=== PATIENT | male | born 1985 | race Caucasian/White ===

== ENCOUNTER 2016-08-26 12:25 | Emergency (ER) | payer OTHER ==
[~2016-08-26] VITALS: Ht 175.3 cm; Wt 89.5 kg
[~2016-08-26 12:25] MED LIST: BACITRAYCIN PLU28 G1 TP; BACTRIM,SEPT1 TABLET PO; CLINDAMYCIN HC300 MG PO; CLONAZEPAM0.5 MG PO; DILAUDID2 MG PO; FLUOXETINE HCL40 MG PO; NEURONTIN300 MG PO; NORCO 5/3251 TABLET PO; PERCOCET 5/31 TABLET PO; PROZAC40 MG PO; RIFAMPIN300 MG PO; SILVADENE20 GM TP
[2016-08-26 16:06] VITALS: BP 160/86
== END 2016-08-26 16:13 | disposition designated cancer center or children's hospital, planned readmission (85) ==
LOC: EME 12:25 → TRA 12:25
DX: T22.312A Burn of third degree of left forearm, initial encounter (principal); X06.2XXA Exposure to ignition of other clothing and apparel, initial encounter; F17.200 Nicotine dependence, unspecified, uncomplicated; Z91.5 Personal history of self-harm; Z71.6 Tobacco abuse counseling
CPT/HCPCS: 99281; 99285; J0690; J1885; J2270; J2405; J7030; J7050

== ENCOUNTER 2017-06-21 13:23 | Emergency (ER) | payer OTHER ==
[~2017-06-21] VITALS: Ht 177.8 cm; Wt 105.9 kg
[2017-06-21] MEDS ORDERED: CLONAZEPAM2 MG PO (14:45)
[2017-06-21 14:53] VITALS: BP 131/82
== END 2017-06-21 14:54 | disposition home or self-care (01) ==
LOC: EME 13:23
DX: Z76.0 Encounter for issue of repeat prescription (principal); F41.9 Anxiety disorder, unspecified; F17.200 Nicotine dependence, unspecified, uncomplicated
CPT/HCPCS: 99281; 99283

== ENCOUNTER 2017-07-28 01:11 | Emergency (ER) | payer OTHER ==
[~2017-07-28] VITALS: Ht 172.7 cm; Wt 105.7 kg
[~2017-07-28 01:11] MED LIST changes: +CLONAZEPAM2 MG PO
[2017-07-28 02:33] VITALS: BP 147/90
== END 2017-07-28 02:39 | disposition left against medical advice (07) ==
LOC: EME 01:11
DX: T25.322A Burn of third degree of left foot, initial encounter (principal); T25.222A Burn of second degree of left foot, initial encounter; X10.2XXA Contact with fats and cooking oils, initial encounter; Y93.G3 Activity, cooking and baking; Z91.5 Personal history of self-harm; Z53.20 Procedure and treatment not carried out because of patient's decision for unspecified reasons; F17.200 Nicotine dependence, unspecified, uncomplicated
CPT/HCPCS: 99281; 99284

== ENCOUNTER 2017-08-18 02:19 | Emergency (ER) | payer OTHER ==
[~2017-08-18] VITALS: Ht 177.8 cm; Wt 102.3 kg
[2017-08-18 02:20] VITALS: BP 144/96
== END 2017-08-18 04:28 | disposition left against medical advice (07) ==
LOC: EME 02:19
DX: T25.022D Burn of unspecified degree of left foot, subsequent encounter (principal); X10.2XXD Contact with fats and cooking oils, subsequent encounter; Z53.21 Procedure and treatment not carried out due to patient leaving prior to being seen by health care provider
CPT/HCPCS: 99281

== ENCOUNTER 2018-01-31 03:40 | Emergency (ER) | payer OTHER ==
[~2018-01-31] VITALS: Ht 177.8 cm; Wt 98.8 kg
[2018-01-31] MEDS ORDERED: NORCO 5/3251 TABLET PO (04:13)
[2018-01-31] MEDS ORDERED: FLEXERIL10 MG PO ×2 (04:13→15:02)
[2018-01-31 04:21] VITALS: BP 152/87
[2018-01-31] MEDS ORDERED: NAPROSYN500 MG PO (15:02)
== END 2018-01-31 04:22 | disposition home or self-care (01) ==
LOC: EXP 03:40 → EME 03:40 → EXP 04:22
DX: S20.211A Contusion of right front wall of thorax, initial encounter (principal); W01.0XXA Fall on same level from slipping, tripping and stumbling without subsequent striking against object, initial encounter; Y93.K1 Activity, walking an animal; Y92.480 Sidewalk as the place of occurrence of the external cause; Z87.891 Personal history of nicotine dependence; Z88.5 Allergy status to narcotic agent; Z88.8 Allergy status to other drugs, medicaments and biological substances
CPT/HCPCS: 71101; 99281; 99283

== ENCOUNTER 2018-01-31 13:28 | Emergency (ER) | payer OTHER ==
[~2018-01-31] VITALS: Ht 177.8 cm; Wt 98.3 kg
[~2018-01-31 13:28] MED LIST changes: +FLEXERIL10 MG PO
[2018-01-31 13:46] VITALS: BP 149/89
[2018-01-31] MEDS ORDERED: NAPROSYN500 MG PO (15:02)
[2018-01-31] MEDS ORDERED: FLEXERIL10 MG PO (15:02)
== END 2018-01-31 15:25 | disposition home or self-care (01) ==
LOC: EME 13:28
DX: S20.211A Contusion of right front wall of thorax, initial encounter (principal); W01.0XXA Fall on same level from slipping, tripping and stumbling without subsequent striking against object, initial encounter; Y93.K1 Activity, walking an animal; Z76.0 Encounter for issue of repeat prescription; Z88.5 Allergy status to narcotic agent
CPT/HCPCS: 99281; 99283

== ENCOUNTER 2018-02-13 04:43 | Emergency (ER) | payer OTHER ==
[~2018-02-13] VITALS: Ht 177.8 cm; Wt 98.6 kg
[~2018-02-13 04:43] MED LIST changes: +NAPROSYN500 MG PO
[2018-02-13] MEDS ORDERED: KEFLEX500 MG PO (05:14)
[2018-02-13] MEDS ORDERED: SILVADENE20 GM TP (05:14)
[2018-02-13] MEDS ORDERED: NORCO 5/3251 TABLET PO (05:14)
[2018-02-13 05:54] VITALS: BP 141/91
== END 2018-02-13 05:35 | disposition home or self-care (01) ==
LOC: EME 04:43
DX: T23.261A Burn of second degree of back of right hand, initial encounter (principal); X12.XXXA Contact with other hot fluids, initial encounter; Z91.5 Personal history of self-harm; F41.9 Anxiety disorder, unspecified; Z88.8 Allergy status to other drugs, medicaments and biological substances
CPT/HCPCS: 99281; 99284

== ENCOUNTER 2018-03-08 19:38 | Emergency (ER) | payer OTHER ==
[~2018-03-08 19:38] MED LIST changes: +KEFLEX500 MG PO
[2018-03-09] MEDS ORDERED: MOBIC7.5 MG PO (13:28)
[2018-03-09] MEDS ORDERED: SILVADENE,SSD,T50 GM TP (13:28)
== END 2018-03-08 20:11 | disposition left against medical advice (07) ==
LOC: EME 19:38
DX: R07.9 Chest pain, unspecified (principal); Z53.21 Procedure and treatment not carried out due to patient leaving prior to being seen by health care provider

== ENCOUNTER 2018-03-09 09:34 | Emergency (ER) | payer OTHER ==
[~2018-03-09] VITALS: Ht 175.3 cm; Wt 100.1 kg
[2018-03-09] MEDS ORDERED: SILVADENE,SSD,T50 GM TP (13:28)
[2018-03-09] MEDS ORDERED: MOBIC7.5 MG PO (13:28)
[2018-03-09 14:07] VITALS: BP 145/87
== END 2018-03-09 14:10 | disposition home or self-care (01) ==
LOC: EME 09:34
DX: T23.201D Burn of second degree of right hand, unspecified site, subsequent encounter (principal); T22.211D Burn of second degree of right forearm, subsequent encounter; F41.9 Anxiety disorder, unspecified; Z88.5 Allergy status to narcotic agent; Z88.8 Allergy status to other drugs, medicaments and biological substances
CPT/HCPCS: 99281; 99284

== ENCOUNTER 2018-03-14 20:40 | Emergency (ER) | payer OTHER ==
[~2018-03-14] VITALS: Ht 175.3 cm; Wt 100.0 kg
[~2018-03-14 20:40] MED LIST changes: +MOBIC7.5 MG PO; +SILVADENE,SSD,T50 GM TP
[2018-03-14] MEDS ORDERED: TYLENOL WITH C1 EACH PO (23:46)
[2018-03-14 23:53] VITALS: BP 139/95
== END 2018-03-14 23:54 | disposition home or self-care (01) ==
LOC: EME 20:40
DX: T22.231A Burn of second degree of right upper arm, initial encounter (principal); T31.0 Burns involving less than 10% of body surface; F17.220 Nicotine dependence, chewing tobacco, uncomplicated; Z91.5 Personal history of self-harm; Z86.19 Personal history of other infectious and parasitic diseases; Z98.890 Other specified postprocedural states; Z88.5 Allergy status to narcotic agent; Z88.8 Allergy status to other drugs, medicaments and biological substances
CPT/HCPCS: 90839; 99281; 99284

== ENCOUNTER 2018-03-23 22:17 | Emergency (ER) | payer OTHER ==
[~2018-03-23] VITALS: Ht 175.3 cm; Wt 101.1 kg
[~2018-03-23 22:17] MED LIST changes: +TYLENOL WITH C1 EACH PO
[2018-03-23 23:20] LABS: HEMATOCRIT 31.9 % (38.0-50.0); HEMOGLOBIN 9.2 G/DL (12.5-16.6); MCH 19.4 PG (29.0-34.0); MCHC 28.8 G/DL (30.0-36.0); MCV 67.2 FL (86-99); PLATELET COUNT 512 K/uL (156-360); RBC DIS.WIDTH-CV 20.2 % (11.8-14.6); RBC DIS.WIDTH-SD 48.1 % (39-53); RED BLOOD COUNT 4.75 M/uL (4.00-5.50); WHITE BLOOD COUNT 6.7 K/uL (4.1-10.2)
[2018-03-23 23:33] LABS: CHLORIDE 104 mEq/L (99-109); POTASSIUM 3.8 mEq/L (3.7-5.4); SODIUM 139 mEq/L (136-147)
[2018-03-23 23:34] LABS: GLUCOSE 92 mg/dL (70-99)
[2018-03-23 23:38] LABS: CREATININE 0.9 mg/dL (0.6-1.3); GFR ESTIMATE (CALCULATED) > 59 mL/min/ (58.99-99999)
[2018-03-23 23:39] LABS: UREA NITROGEN (BUN) 7 mg/dL (9-23)
[2018-03-24 00:46] VITALS: BP 121/87
== END 2018-03-24 01:00 | disposition home or self-care (01) ==
LOC: EME 22:17
PROVIDERS: Physician Assistant
DX: M79.641 Pain in right hand (principal); T23.301D Burn of third degree of right hand, unspecified site, subsequent encounter
CPT/HCPCS: 80048; 85027; 99281; 99284